=== PATIENT | male | born 1990 | race Caucasian/White ===

== ENCOUNTER 2017-05-24 18:07 | Emergency (ER) | payer SELFPAY ==
[~2017-05-24] VITALS: Ht 182.9 cm; Wt 75.4 kg
[~2017-05-24 18:07] MED LIST: NAPROXEN500 MG PO; NOHOMEMEDS; PREDNISONE20 MG PO
[2017-05-24 21:09] VITALS: BP 119/77
== END 2017-05-24 21:09 | disposition home or self-care (01) ==
LOC: EME 18:07
DX: T40.1X1A Poisoning by heroin, accidental (unintentional), initial encounter (principal)
CPT/HCPCS: 71010; 99281; 99284; J2310